=== PATIENT | female | born 1985 | race Native Hawaiian/Other Pacific Islander ===

== ENCOUNTER 2022-11-12 12:25 | Outpatient (CLI) | payer OTHER ==
[~2022-11-12 12:25] MED LIST: CYCL10TA35 PO; FERROUS SULF325 M1 OR; TRAZ100T OR; prednisone PO
== END 2022-11-12 17:00 | disposition home or self-care (01) ==
LOC: MRI 12:25
PROVIDERS: ATTEND Student in an Organized Health Care Education/Training Program
DX: M54.16 Radiculopathy, lumbar region (principal); M47.816 Spondylosis without myelopathy or radiculopathy, lumbar region; M48.062 Spinal stenosis, lumbar region with neurogenic claudication; M54.12 Radiculopathy, cervical region; M47.812 Spondylosis without myelopathy or radiculopathy, cervical region